=== PATIENT | female | born 1960 | race Caucasian/White ===

== ENCOUNTER → 2023-04-14 13:14 | Outpatient (BNVA) | payer BC, SELFPAY | PROVIDERS: PCP Internal Medicine; Visit Provider Nurse Practitioner Family ==

== ENCOUNTER 2023-06-09 07:18 | Outpatient (REF) | payer BC, SELFPAY ==
--- NOTE | ~2023-06-09 | MR_ITS ---
EXAMINATION: MR THORACIC SPINE WITHOUT CONTRAST CLINICAL INFORMATION: Right thoracic rib subluxation at T9. COMPARISON: No relevant prior imaging. TECHNIQUE: MRI of the thoracic spine was obtained using routine sequences without contrast. FINDINGS: Alignment is normal. Vertebral body heights are preserved. Bone marrow signal intensity is somewhat heterogeneous. No acute bone marrow signal changes. There is slight loss of intervertebral disc height and T2 signal intensity at multiple levels related to disc degeneration. There are a few shallow protrusions and/or bulging discs causing minimal indentation of the thecal sac. No canal compromise or cord compression. No abnormal intramedullary signal changes. There are a few somewhat prominent perineural root sleeve cysts along the foraminal segments of the nerve roots, the largest of which is visualized within the left foraminal zone along the expected course of the left T6 nerve root best visualized on axial T2 image 26 of 60 series 6 measuring up to 0.9 cm in maximal diameter. Additional root sleeve cysts are visualized at T2-T3, T5-T6, and T9-T10. Limited visualization of the intrathoracic anatomy reveals no abnormal finding. Specifically no priors small soft tissue mass or collection. MR/MR thoracic spine wo con IMPRESSION: There are a few shallow protrusions and/or bulging discs causing minimal indentation of the thecal sac. No canal compromise or cord compression. No abnormal intramedullary signal changes. There are a few somewhat prominent perineural root sleeve cysts along the foraminal segments of the nerve roots as described above, the largest of which is visualized within the left foraminal zone along the expected course of the left T6 nerve root measuring up to 0.9 cm in maximal diameter.
== END 2023-06-09 07:19 | disposition home or self-care (01) ==
LOC: HO.MRI 07:18
PROVIDERS: PCP Internal Medicine; Visit Provider Nurse Practitioner Family
DX: M54.14 Radiculopathy, thoracic region (principal); M54.6 Pain in thoracic spine
CPT/HCPCS: 72146

== ENCOUNTER 2023-06-24 15:44 | Outpatient (AMB) | payer BC, SELFPAY ==
--- NOTE | 2023-06-24 15:47 | A.OFFVIS_ITS ---
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 She reports minimal pain at her right sided mid thoracic region below scapula, which has been intermittent. Mild tenderness elicited on palpation at these areas. Currently she rates her pain at 3/10. Acupuncture has been helpful per patient but unfortunately not covered by insurance for continuous treatments and high out pocket costs. Thoracic MRI findings are noted for a few somewhat prominent perineural root sleeve cysts along the foraminal segments of the nerve roots as described above, the largest of which is visualized within the left foraminal zone along the expected course of the left T6 nerve root measuring up to 0.9 cm in maximal diameter. There are a few shallow protrusions and/or bulging discs causing minimal indentation of the thecal sac. No canal compromise or cord compression. No abnormal intramedullary signal changes. Results were discussed with patient in greater detail, noting that these multiple peineural cysts can be a cause of dorsalgia without significant disc herniation. Patient reports she recently underwent right axilla US and is scheduled for axillary biopsy this at [facility] [place]. US report results are not available for review today. Denies any pending lab work. She will proceed with biopsy procedure. Denies any fever, weight loss, breast pain or tenderness, night sweats, shortness of breaths, chest pain or pressure, fatigue or muscle weakness. Patient's neuromotor functions, spinal movements and bowel/bladder habits are normal. PRIOR: Patient is a pleasant 62 years female presents today with right-sided mid back and ribs pain and discomfort with laying on her back. She denies any recent injury, trauma. Pain started after HIIT workout over a year ago. Patient recalls similar symptoms when she played softball in her 20s. She reports deep breathing was painful during initial physical therapy sessions but has been much better now. At this time she continues to experience constant pulling at the me dial and lower border of right scapula and rhomboid major muscle. Patient reports she has not gained much pain relieve this PT. today her pain is minimal and is rated at 2/10. She denies chest pain or shortness of breath. 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 She continues to stay active, exercises daily and the stretching and Pilates. Thoracic spine imaging showed degenerative changes. Denies previous spine surgery or injections. Patient is interested in acupuncture referral. Onset 01/01/22 Location Thoracic back pain, right side Duration Chronic for one year, happened during HIIT workout, yoga Characteristics of symptom or complaint Pulling (especially with obliques), tight, squeezing, tearing Aggravating or associated factors Push ups, planks with body twist Relieving factors Tylenol, NSAIDs, lidocaine, capsaicin Treatment PT x3 months, no improvement PFSH Medical History Allergic rhinitis Anxiety Hyperlipidemia Hypertension Surgical History H/O breast augmentation Social History Alcohol intake: current Alcohol intake frequency: a few times a week Review of Systems Const All systems reviewed & are unremarkable except as noted in HPI and below Physical Exam Vital Signs: Last Vital Signs Pulse 70 06/24/23 15:55 BP 132/83 06/24/23 15:55 Pulse Ox 99 06/24/23 15:55 Oxygen Delivery Method Room Air 06/24/23 15:55 BMI result Body Mass Index 22.6 General: Appears afebrile. Alert and oriented. Mood and affect appropriate. Follows and participates in conversation appropriately. Respiratory effort is unlabored. No cough. Able to transition from sit to stand unassisted. Ambulates with bilaterally normal heel strike and toe off. Neck Neck: Yes full ROM, Yes no lymphadenopathy, Yes supple, No anterior neck swelling and Yes no JVD General: Yes no CVA tenderness Back/Spine/Pelvis Back: no CVA tenderness Cervical Spine: cervical ROM normal, cervical muscular tenderness, pain with cervical ROM, No Cervical spine scars present, cervical spasm, No Cervical spine tenderness and No step off deformity Thoracic/Lumbar Spine: thoracic and lumbar spine normal to inspection, No Thoracic/lumbar spine scar(s), paraspinal muscle tenderness on the right in the lower thoracic, No Thoracic/lumbar scoliosis, No thoracic spinal tenderness and No lumbar spinal tenderness Results Reviewed Results Reviewed: MR THORACIC SPINE WITHOUT CONTRAST 06/09/23 CLINICAL INFORMATION: Right thoracic rib subluxation at T9. COMPARISON: No relevant prior imaging. TECHNIQUE: MRI of the thoracic spine was obtained using routine sequences without contrast. FINDINGS: Alignment is normal. Vertebral body heights are preserved. Bone marrow signal intensity is somewhat heterogeneous. No acute bone marrow signal changes. There is slight loss of intervertebral disc height and T2 signal intensity at multiple levels related to disc degeneration. There are a few shallow protrusions and/or bulging discs causing minimal indentation of the thecal sac. No canal compromise or cord compression. No abnormal intramedullary signal changes. There are a few somewhat prominent perineural root sleeve cysts along the foraminal segments of the nerve roots, the largest of which is visualized within the left foraminal zone along the expected course of the left T6 nerve root best visualized on axial T2 image 26 of 60 series 6 measuring up to 0.9 cm in maximal diameter. Additional root sleeve cysts are visualized at T2-T3, T5-T6, and T9-T10. Limited visualization of the intrathoracic anatomy reveals no abnormal finding. Specifically no priors small soft tissue mass or collection. IMPRESSION: There are a few shallow protrusions and/or bulging discs causing minimal indentation of the thecal sac. No canal compromise or cord compression. No abnormal intramedullary signal changes. There are a few somewhat prominent perineural root sleeve cysts along the foraminal segments of the nerve roots as described above, the largest of which is visualized within the left foraminal zone along the expected course of the left T6 nerve root measuring up to 0.9 cm in maximal diameter. 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 Pending cervical spine xray to assess degree of degenerative changes, any subluxation, listhesis or pars defects. 2. MRI of the thoracic spine results have been discussed with patient. I nterventional treatments for symptomatic dorsalgia as well as neurosurgery evaluation for surgical removal of perineural cysts can be option if symptoms worsen. Patient has recently undergone US right axilla and is schedule to right axillary biopsy in 2 days. We will send request to [facility] for recent US axilla report findings. A copy of thoracic spine MRI report is faxed to patient's PCP office. All questions and concerns have been answered the patient agreed with the plan. Follow-up for cervical spine xray results and sooner as needed. Coding Level of Care Code Est Pt Level 4 (90119) Diagnoses Thoracic radiculopathy M54.14 Cervicalgia M54.2 Muscle spasm M62.838 Perineural cysts G96.191 Dorsalgia of thoracic region M54.6
[2023-06-24 15:55] VITALS: BP 132/83; PULSE 70; O2SAT 99; BMI 22.6
== END 2023-06-24 16:12 | disposition home or self-care (01) ==
PROVIDERS: PCP Internal Medicine; Visit Provider Nurse Practitioner Family
DX: M54.14 Radiculopathy, thoracic region (principal); M54.2 Cervicalgia; M62.838 Other muscle spasm; G96.191 Perineural cyst; M54.6 Pain in thoracic spine
CPT/HCPCS: 99214

== ENCOUNTER → 2023-06-24 15:44 | Outpatient (BNVA) | payer BC, SELFPAY | PROVIDERS: PCP Internal Medicine; Visit Provider Nurse Practitioner Family ==